=== PATIENT | female | born 1940 | race Caucasian/White ===

== ENCOUNTER 2023-05-23 15:08 | Emergency (ER) | payer MEDICARE, BC, SELFPAY ==
[2023-05-23 15:22] VITALS: BP 120/69; PULSE 86; RESP 16; TEMP 36.8; O2SAT 93; BMI 28.3
--- NOTE | 2023-05-23 17:30 | ED_ITS ---
HPI - General Adult General Date Seen: 05/23/23 Chief complaint: Eye Problems Stated complaint: Runny, itchy eye L Time Seen by Provider: 05/23/23 15:20 History of Present Illness HPI narrative: This is a very pleasant, generally healthy 83-year-old female who presents the ER today with her with concern for bilateral conjunctivitis. She is generally healthy with no history of diabetes, cancer, or immunosuppression. Her has been sick since last week with symptoms including bilateral conjunctivitis, purulent eye drainage, ear pain, cough, nasal congestion he was seen in another clinic and put on amoxicillin for his ear infection and ofloxac in eyedrops for his conjunctivitis. The patient has also developed bilateral eye drainage that began yesterday and is worse today. It started in her left eye and is now present in the right eye. She is having some purulent drainage from both eyes. Also mild redness of the bulbar conjunctiva her left eye. No change in her vision. No pain in her eye, just redness, drainage, and irritation. She wears her glasses but otherwise feels that her vision is normal/baseline. No fever. Related Data Home Medications Medication Instructions Recorded Confirmed alendronate 70 mg tablet 70 mg PO 05/23/23 atorvastatin 10 mg tablet 10 mg PO DAILY 05/23/23 05/23/23 Previous Rx's Medication Instructions Recorded ofloxacin 0.3 % eye drops 1 drp ophthalmic (eye) QID #10 mL 05/23/23 Allergies Allergy/AdvReac Type Severity Reaction Status Date / Time No Known Drug Allergies Allergy Verified 05/23/23 15:27 Review of Systems Narrative: Negative PFSH PFS Social History Smoking Status: Never smoker How often do you have a drink containing alcohol: never AUDIT-C Alcohol total score: 0 Non-prescribed substance use: denies use Exam Narrative: Exam Narrative: Constitutional: Appears well-developed and well-nourished. Alert. Conversant. Non toxic. HENT: Head: Atraumatic. Nose: Nose normal. Mouth/Throat: Oral mucosa is clear and moist. no trismus. Pharynx normal. Tonsils symmetric. No tonsillar enlargement, erythema, or exudate. Wearing bilateral hearing aids. Removed for exam. No otitis. Eyes: Conjunctivae mildly injected on the left. There is purulent drainage from both the left and right eyelids.. EOM normal. No exophthalmos or enophthalmos. Pupils equal, round, and reactive to light. No scleral icterus. Fluorescein uptake is negative bilaterally. Neck: Normal range of motion. Neck supple. No tracheal deviation present. Cardiovascular: Normal rate, regular rhythm. No gallop. No friction rub. No murmur heard. Symmetric radial artery pulses Pulmonary/Chest: Effort normal. No stridor. No respiratory distress. No wheezes. No rales. No rhonchi . No tenderness. Abdominal: Soft. Bowel sounds normal. No distension. No mass. No tenderness. No rebound. No guarding. Musculoskeletal: RUE: Normal range of motion. No tenderness. No deformity LUE: Normal range of motion. No tenderness. No deformity RLE: Normal range of motion. No edema. No tenderness. No deformity LLE: Normal range of motion. No edema. No tenderness. No deformity Lymph: No cervical adenopathy. Neurological: Alert and oriented to person, place, and time. Normal strength. CN II-VII intact. No sensory deficit. GCS eye subscore is 4. GCS verbal subscore is 5. GCS motor subscore is 6. Normal coordination Skin: Skin is warm and dry. No rash noted. No pallor. Normal capillary refill. Psychiatric: Normal mood. Normal affect. Const: Vital Signs, click to edit/add: Vital Signs - 24 hr 05/23/23 15:22 Temperature 98.2 F Pulse Rate [Left P ulse Oximeter] 86 Respiratory Rate 16 Blood Pressure [Ri ght Upper Arm] 120/69 Pulse Oximetry 93 Oxygen Delivery Me thod Room Air Course Vital Signs Vital signs: Initial Vital Signs Temperature 98.2 F 05/23/23 15:22 Temperature Source Temporal Artery Scan 05/23/23 15:22 Pulse Rate 86 05/23/23 15:22 Respiratory Rate 16 05/23/23 15:22 Blood Pressure 120/69 05/23/23 15:22 Blood Pressure Mean 86 05/23/23 15:22 Blood Pressure Position Sitting 05/23/23 15:22 Pulse Oximetry 93 05/23/23 15:22 Oxygen Delivery Method Room Air 05/23/23 15:22 Vital Signs Temperature 98.2 F 05/23/23 15:22 Pulse Rate 86 05/23/23 15:22 Respiratory Rate 16 05/23/23 15:22 Blood Pressure 120/69 05/23/23 15:22 Pulse Oximetry 93 05/23/23 15:22 Oxygen Delivery Method Room Air 05/23/23 15:22 Temperature 98.2 F 05/23/23 15:22 Pulse Rate 86 05/23/23 15:22 Respiratory Rate 16 05/23/23 15:22 Blood Pressure 120/69 05/23/23 15:22 Pulse Oximetry 93 05/23/23 15:22 Oxygen Delivery Method Room Air 05/23/23 15:22 Medical Decision Making MDM Narrative Medical decision making narrative: This patient presents for evaluation of red, itchy eyes. This began yesterday in her left eye and now is also affected her right eye today. A broad differen tial diagnosis was considered including bacterial conjunctivitis, viral conjunctivitis, foreign body, corneal abrasion, chemical vs allergic conjunctivitis, corneal ulcer, HSV, herpes zoster opthalmicus, endopthalmitis, orbital cellulitis, etc. Signs and symptoms consistent with a conjunctivitis, likely bacterial. Will start antibiotics and have close follow-up of eye physician. No red flag symptoms to suggest any of the above worrisome etiologies. She wears glasses but not contact lenses. No dendrite or ulcer seen on slit lamp exam. No exam evidence for associated sinusitis, pharyngitis, otitis media. Discharge Plan Discharge Clinical Impression: Bacterial conjunctivitis Patient Disposition: Home, Self-Care Condition: Stable Instructions: Conjunctivitis (ED) Additional Instructions: Please come back to the ER right away if you have worsening pain in your eyes, swelling your eyes, change in your vision, fever, or any concerns. If you are not improved within 2-3 days, please recheck with your regular doctor. Activity Level: No Restrictions Discharge Diet: Regular Prescriptions: New ofloxacin 0.3 % drops 1 drp ophthalmic (eye) QID Qty: 10 0RF No Action atorvastatin 10 mg tablet 10 mg PO DAILY alendronate 70 mg tablet 70 mg PO Stand Alone Forms: [employer] Info Instructions
== END 2023-05-23 16:47 | disposition home or self-care (01) ==
LOC: ED 16:42
PROVIDERS: Emergency Provider Emergency Medicine; PCP Family Medicine
DX: H10.89 Other conjunctivitis (principal)
CPT/HCPCS: 99282; 99283; A9270